=== PATIENT | male | born 1955 | race Caucasian/White ===

== ENCOUNTER 2018-01-27 18:47 | Emergency (ER) | payer OTHER ==
[~2018-01-27] VITALS: Ht 182.8 cm; Wt 82.6 kg
[~2018-01-27 18:47] MED LIST: KEFLEX500 M1 PO
[2018-01-27] MEDS ORDERED: PRINIVIL10 MG PO (18:54)
[2018-01-27] MEDS ORDERED: TAMIFLU 75MG CA75 MG PO (19:56)
[2018-01-27] MEDS ORDERED: MEDROL DOSEPAK4 MG PO (19:56)
== END 2018-01-27 20:10 | disposition home or self-care (01) ==
LOC: ED 18:47
DX: J10.1 Influenza due to other identified influenza virus with other respiratory manifestations (principal)

== ENCOUNTER → 2022-07-20 | Outpatient (CLI) | payer OTHER ==
[~2022-07-20] MED LIST changes: +MEDROL DOSEPAK4 MG PO; +PRINIVIL10 MG PO; +TAMIFLU 75MG CA75 MG PO
== END | disposition home or self-care (01) ==
LOC: MRI 08:00
PROVIDERS: ATTEND Internal Medicine
DX: M47.26 Other spondylosis with radiculopathy, lumbar region (principal); M48.07 Spinal stenosis, lumbosacral region; M25.78 Osteophyte, vertebrae

== ENCOUNTER 2023-05-11 09:09 | Emergency (ER) | payer OTHER ==
[~2023-05-11] VITALS: Ht 182.8 cm; Wt 87.1 kg
[2023-05-11 09:46] LABS: BASO % 0.4 % (0.0-1.0); EOS # 0.1 10*3/uL (0.0-0.4); EOS % 1.6 % (1.0-4.0); HEMATOCRIT 43.5 % (42.0-52.0); LYMPH # 1.5 10*3/uL (1.3-4.4); LYMPH % 20.6 % (27.0-41.0); MEAN CELL VOLUME 89.5 fl (80.0-94.0); MEAN CORPUSCULAR HGB 29.8 pg (27.0-31.0); MEAN CORPUSCULAR HGB CONC 33.3 g/dl (33.0-37.0); MONO # 0.6 10*3/uL (0.1-1.0); MONO % 7.9 % (3.0-9.0); NEUT # 4.9 10*3/uL (2.3-7.9); NEUT % 69.2 % (47.0-73.0); PLATELET COUNT AUTOMATED 174 10*3/uL (130-400); RED BLOOD COUNT 4.86 10*6/uL (4.50-5.90); RED CELL DISTRI WIDTH 13.7 % (0-14.5); WHITE BLOOD COUNT 7.1 10*3/uL (4.8-10.8)
[2023-05-11 10:10] LABS: POTASSIUM 3.8 mmol/L (3.4-5.1); TOTAL PROTEIN 7.6 gm/dL (6.0-8.0)
[2023-05-11 10:28] LABS: BILIRUBIN Negative (Negative); BLOOD Negative (Negative); CLARITY Clear (Clear); COLOR Yellow (Yellow); GLUCOSE Negative (Negative); KETONE Negative (Negative); LEUKO ESTERASE Negative (Negative); NITRITE Negative (Negative); PH 5.5 (4.5-8.0)
[2023-05-11 10:45] LABS: BACTERIA 1+; HYALINE CAST 31-40; MUCOUS 1+
[2023-05-11] MEDS ORDERED: REGLAN10 M1 PO (12:04)
== END 2023-05-11 12:23 | disposition home or self-care (01) ==
LOC: ED 09:09
PROVIDERS: Emergency Medicine
DX: R10.84 Generalized abdominal pain (principal); R11.2 Nausea with vomiting, unspecified; I10 Essential (primary) hypertension

== ENCOUNTER 2024-04-21 16:52 | Emergency (ER) | payer OTHER ==
[~2024-04-21] VITALS: Ht 182.8 cm; Wt 82.6 kg
[~2024-04-21 16:52] MED LIST changes: +REGLAN10 M1 PO
[2024-04-21] MEDS ORDERED: Acetaminophen/Oxycodone 5 MG/325 MG TABLET PO ONE (19:25)
[2024-04-21 19:32] LABS: BASO % 0.4 % (0.0-1.0); EOS # 0.3 10*3/uL (0.0-0.4); EOS % 4.6 % (1.0-4.0); LYMPH # 1.9 10*3/uL (1.3-4.4); LYMPH % 25.9 % (27.0-41.0); MEAN CELL VOLUME 91.3 fl (80.0-94.0); MEAN CORPUSCULAR HGB 29.6 pg (27.0-31.0); MEAN CORPUSCULAR HGB CONC 32.4 g/dl (33.0-37.0); MEAN PLATELET VOLUME 10.8 fl (9.6-12.3); MONO % 13.6 % (3.0-9.0); NEUT # 4.1 10*3/uL (2.3-7.9); PLATELET COUNT AUTOMATED 154 10*3/uL (130-400); RED BLOOD COUNT 4.16 10*6/uL (4.50-5.90); WHITE BLOOD COUNT 7.4 10*3/uL (4.8-10.8)
[2024-04-21 19:46] LABS: BILIRUBIN Negative (Negative); BLOOD Negative (Negative); CLARITY Clear (Clear); COLOR Yellow (Yellow); GLUCOSE Negative (Negative); KETONE Negative (Negative); LEUKO ESTERASE Negative (Negative); NITRITE Negative (Negative); PH 5.5 (4.5-8.0); SPECIFIC GRAVITY 1.015 (1.001-1.030); UROBILINOGEN 0.2 E.U./dl (0.0-1.0)
[2024-04-21 19:48] LABS: ALKALINE PHOSPHATASE 123 U/L (46-116); BUN 42 mg/dl (9-23); CHLORIDE 110 mmol/L (98-107); LIPASE 39 U/L (12-53); POTASSIUM 3.8 mmol/L (3.4-5.1); SGPT/ALT 25 U/L (5-49); TOTAL PROTEIN 6.6 gm/dL (6.0-8.0)
[2024-04-21 19:53] LABS: BACTERIA TRACE; MUCOUS TRACE
== END 2024-04-21 22:49 | disposition home or self-care (01) ==
LOC: ED 16:52
PROVIDERS: Emergency Medicine
DX: M54.50 Low back pain, unspecified (principal); R10.9 Unspecified abdominal pain; Z79.899 Other long term (current) drug therapy

== ENCOUNTER → 2025-03-01 | Outpatient (CLI) | payer OTHER | END | disposition home or self-care (01) | LOC: MRI 08:53 | PROVIDERS: ATTEND Internal Medicine | DX: M47.22 Other spondylosis with radiculopathy, cervical region (principal); M25.78 Osteophyte, vertebrae; M48.02 Spinal stenosis, cervical region ==